=== PATIENT | male | born 1975 | race Hispanic/Latino ===

== ENCOUNTER 2020-06-23 08:02 | Emergency (ER) | payer SELFPAY ==
--- OUTSIDE RECORDS SUMMARY | 2020-06-23 08:04 | XMS REPORT | Continuity of Care Document ---
:1975 Author Organization [facility] t Address [address] [place] [address] Care Team Providers Name Role Phone Amos SALINAS Attending Clinician Problems This patient has no known problems. Allergies, Adverse Reactions, Alerts This patient has no known allergies or adverse reactions. Medications This patient has no known medications. Procedures This patient has no known procedures. Encounters Start End Encounter Admission Attending Care Care Encounter Source Date/Time Date/Time Type Type Clinicians Facility Department ID 2020-05-06 2020-05-06 Chivo Trinidad [facility] [id number] 10:47:00 11:58:00 Serenity Boyd [id number] [place] [id number] [place] [id number] Results This patient has no known results.
--- OUTSIDE RECORDS SUMMARY | 2020-06-23 08:04 | XMS REPORT | Summary of Care ---
:1975 Author Organization [facility] - Health Address [address] [place] [id number] Care Team Providers Name Role Phone Pcp, Patient Does Not Have A Primary Care Provider +[id number] 0-0000 Reason for Visit Reason Comments Abscess Auth/Cert Status Reason Specialty Diagnoses / Referred By Referred To Procedures Contact Contact Emergency Medicine [facility] ergency Dept [address] [place] [address] Fax: Encounter Details Date Type Department Care Team Description 05/06/2020 Emergency ADC-Emergency Serenity Trinidad , RITA Cellulitis and abscess of left leg (Prim caitlin Dx); Department [address] [place] [address] Tinea pedis of left foot [address] [place] [place] [address] [address] [place] [address] Allergies No Known Allergiesdocumented as of this encounter (statuses as of 05/06/2020) Medications Medication Sig Dispensed Refills Start Date End Date Status CITALOPRAM 40 MG ORAL 1 Tab Oral DAILY 30 0 09/07/2007 Active TAB QUETIAPINE 200 MG 1 Tab Oral QHS 0 0 09/07/2007 Active ORAL TAB sulfamethoxazole-trim Take 1 tablet by 14 tablet 0 05/06/2020 05/13/2020 Active ethoprim 800-160 mg mouth 2 (two) per times daily for 7 tabletIndications: days. Cellulitis and abscess of left leg, Tinea pedis of left foot acetaminophen-codeine Take 1 tablet by 12 tablet 0 05/06/2020 05/13/2020 Active 300-30 mg mouth every 6 tabletIndications: (six) hours as acute pain needed for Pain (scale 7-10) for up to 7 days. 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 documented as of this encounter Last Filed Vital Signs Vital Sign Reading Time Taken Comments Blood Pressure 116/73 05/06/2020 10:48 AM CDT Pulse 83 05/06/2020 10:48 AM CDT Temperature 36.8 C (98.3 F) 05/06/2020 10:48 AM CDT Respiratory Rate 18 05/06/2020 10:48 AM CDT Oxygen Saturation 100% 05/06/2020 10:48 AM CDT Inhaled Oxygen Concentration - - Weight 84.4 kg (186 lb) 05/06/2020 10:48 AM CDT Height 175.3 cm (5' 9") 05/06/2020 10:48 AM CDT Body Mass Index 27.47 05/06/2020 10:48 AM CDT documented in this encounter Discharge Instructions Serenity Pérez FNP - 05/06/2020Please return to the ER if you have any increased redness, drainage, or swelling after taking antibiotics for two days, any fever, chills, nausea or vomiting, or any other symptom you feel is abnormal.Please follow up with your PCP for wound recheck. Take all antibiotics as prescribed. Thank you. Purchase over the counter foot fungus medication for toes on left foot as use as directed. AttachmentsThe following attachments cannot be sent through Care Everywhere. Abscess, Antibiotic Treatment Only (Syrian)Cellulitis, Discharge Instructions for (Syrian)Athlete's Foot (Syrian)documented in this encounter ED Notes Derek Muir RN - 05/06/2020 10:48 AM CDTC/O left lower leg abscess and foot fungus x 1 week. States "It just keeps getting worse". documented in this encounter Miscellaneous Notes ED Nurse Note - Archana Romero RN - 05/06/2020 11:31 AM CDTPatient discharged home with instructions given. Patient left ER vitally stable and ambulatory in steady gait. No valuables left in ED. documented in this encounter Plan of Treatment Health Maintenance Due Date Last Done Comments Depression Screening 1985 DTaP,Tdap,and Td Vaccines (1 - 1992 Tdap) INFLUENZA VACCINE (#1) 2020 04/12/2007 Colorectal Cancer Screening 2023 PNEUMOCOCCAL 0-64 YEARS COMBINED Aged Out No longer eligible based on SERIES patient's age to complete this topic documented as of this encounter Results Not on filedocumented in this encounter Visit Diagnoses Diagnosis Cellulitis and abscess of left leg - Ramila jayson Tinea pedis of left foot Dermatophytosis of foot documented in this encounter Administered Medications Medication Order MAR Action Action Date Dose Rate Site ibuprofen (IBU) tablet 800 mg Given 05/06/2020 11:23 AM CDT 800 mg 800 mg, Oral, ONCE, 1 dose, 05/06/20 at 1215, CHELSIE sulfamethoxazole-trimethoprim (BACTRIM DS) Given 05/06 11:22 AM CDT 1 tablet 800-160 mg per tablet 1 tablet 1 tablet, Oral, ONCE NOW, 1 dose, 05/06/20 at 1215, CHELSIE, Reason for Anti-Infective: Documented Infection, Documented Infection Site: Skin / Soft Tissue, Duration of Therapy: 7 days documented in this encounter
--- NOTE | 2020-06-23 08:22 | EDPHYS ---
Physician Documentation [facility] Name: Luis Llanos Age: 45 yrs Sex: Male : 1975 Arrival Date: 06/23/2020 Time: 08:04 Bed 15 Private MD: ED Physician Pernell Carver HPI: 06/23 08:16 This 45 yrs old Male presents to ER via Unassigned with complaints of Boil. jefe 08:16 The patient presents with an abscess of the left leg, The patient presents with jefe cellulitis of the left leg, the patient presents with a swollen area of the medial aspect of left thigh. Description: The affected area is moderate sized, localized, draining, erythematous, hot. Onset: The symptoms/episode began/occurred 3 day(s) ago. Possible cause(s): unknown. Associated signs and symptoms: The patient has no apparent associated signs or symptoms. Modifying factors: the symptoms are alleviated by remaining still. Severity of symptoms: At their worst the symptoms were mild, moderate, in the emergency department the symptoms are unchanged. The patient has not experienced similar symptoms in the past. Historical: - Allergies: 08:23 No Known Allergies; jl7 - Home Meds: 08:23 None [Active]; jl7 - PMHx: 08:23 None; jl7 - PSHx: 08:23 None; jl7 - Immunization history:: Adult Immunizations not up to date. - Social history:: Smoking status: Patient reports the use of cigarette tobacco products, 3 cigarettes/day . - Family history:: not pertinent. ROS: 08:16 Constitutional: Negative for fever, chills, and weight loss, Eyes: Negative for injury, jefe pain, redness, and discharge, ENT: Negative for injury, pain, and discharge, Neck: Negative for injury, pain, and swelling, Cardiovascular: Negative for chest pain, palpitations, and edema, Respiratory: Negative for shortness of breath, cough, wheezing, and pleuritic chest pain, Abdomen/GI: Negative for abdominal pain, nausea, vomiting, diarrhea, and constipation, Back: Negative for injury and pain, : Negative for injury, bleeding, discharge, and swelling, Neuro: Negative for headache, weakness, numbness, tingling, and seizure, Psych: Negative for depression, anxiety, suicide ideation, homicidal ideation, and hallucinations, Allergy/Immunology: Negative for hives, rash, and allergies, Endocrine: Negative for neck swelling, polydipsia, polyuria, polyphagia, and marked weight changes, Hematologic/Lymphatic: Negative for swollen nodes, abnormal bleeding, and unusual bruising. 08:16 MS/extremity: Positive for pain, swelling, tenderness, of the medial aspect of left thigh. Exam: 08:16 Constitutional: This is a well developed, well nourished patient who is awake, alert, jefe and in no acute distress. Head/Face: Normocephalic, atraumatic. Eyes: Pupils equal round and reactive to light, extra-ocular motions intact. Lids and lashes normal. Conjunctiva and sclera are non-icteric and not injected. Cornea within normal limits. Periorbital areas with no swelling, redness, or edema. ENT: Nares patent. No nasal discharge, no septal abnormalities noted. Tympanic membranes are normal and external auditory canals are clear. Oropharynx with no redness, swelling, or masses, exudates, or evidence of obstruction, uvula midline. Mucous membranes moist. Neck: Trachea midline, no thyromegaly or masses palpated, and no cervical lymphadenopathy. Supple, full range of motion without nuchal rigidity, or vertebral point tenderness. No Meningismus. Chest/axilla: Normal chest wall appearance and motion. Nontender with no deformity. No lesions are appreciated. Cardiovascular: Regular rate and rhythm with a normal S1 and S2. No gallops, murmurs, or rubs. Normal PMI, no JVD. No pulse deficits. Respiratory: Lungs have equal breath sounds bilaterally, clear to auscultation and percussion. No rales, rhonchi or wheezes noted. No increased work of breathing, no retractions or nasal flaring. Abdomen/GI: Soft, non-tender, with normal bowel sounds. No distension or tympany. No guarding or rebound. No evidence of tenderness throughout. Back: No spinal tenderness. No costovertebral tenderness. Full range of motion. Male : Normal genitalia with no discharge or lesions. Neuro: Awake and alert, GCS 15, oriented to person, place, time, and situation. Cranial nerves II-XII grossly intact. Motor strength 5/5 in all extremities. Sensory grossly intact. Cerebellar exam normal. Normal gait. Psych: Awake, alert, with orientation to person, place and time. Behavior, mood, and affect are within normal limits. 08:16 Skin: abscess, that is moderate sized, approximately 3 cm(s), with drainage, with fluctuance, with induration, with surrounding cellulitis, cellulitis, that is mild, induration, that is moderate is noted. Vital Signs: 08:10 BP 174 / 96; Pulse 80; Resp 17; Temp 97.9; Pulse Ox 100% ; Weight 84.37 kg; Height 5 7 ft. 8 in. (172.72 cm); Pain 10/10; 08:26 BP 146 / 95; Pulse 76; Resp 17; Pulse Ox 100% ; jl7 08:10 Body Mass Index 28.28 (84.37 kg, 172.72 cm) 7 Procedures: 08:16 I \T\ D: Incision and drainage was performed for an abscess of the left Prepped with [facility] Betadine, Anesthetized with 10 ml's 1% Lidocaine w/ Epi. Incised with #11 blade. Drained moderate amount Packed with iodoform gauze, Dressing: non-Adherent dressing. MDM: 08:10 Patient medically screened. [facility] 08:16 Differential diagnosis: abscess, cellulitis. Data reviewed: vital signs, nurses notes. [facility] Data interpreted: surveillance monitor: rate is 76 beats/min, rhythm is regular. Counseling: I had a detailed discussion with the patient and/or guardian regarding: the historical points, exam findings, and any diagnostic results supporting the discharge/admit diagnosis, lab results. 06/23 08:15 Order name: Wound Culture [facility] 06/23 08:29 Order name: Glucose, Ancillary Testing EDFL 06/23 08:16 Order name: Gloves, Sterile; Complete Time: 08:22 [facility] 06/23 08:16 Order name: Setup Suture Tray; Complete Time: 08:22 [facility] 06/23 08:22 Order name: Blood Glucose Level; Complete Time: 08:25 [facility] Administered Medications: 08:20 Drug: Doxycycline 200 mg Route: PO; [facility] 09:05 Follow up: Response: No adverse reaction [facility] 08:20 Drug: Bactrim (160 mg-800 mg (DS) 1 tablet Route: PO; 09:05 Follow up: Response: No adverse reaction [facility] 08:48 Drug: Lidocaine-Epinephrine -1%: (1:100,000) 10 ml Volume: 20 ml; Route: Infiltration; jl7 09:05 Follow up: Response: No adverse reaction jl7 Disposition: 06/23/20 08:21 Discharged to Home. Impression: Cutaneous abscess of limb, unspecified - left medial thigh. - Condition is Stable. - Discharge Instructions: Skin Abscess, Incision and Drainage, Skin Abscess, [id number], Incision and Drainage, Care After. - Prescriptions for Ibuprofen 600 mg Oral Tablet - take 1 tablet by ORAL route every 6 hours As needed take with food; 20 tablet. Doxycycline Hyclate 100 mg Oral Tablet - take 1 tablet by ORAL route every 12 hours; 20 tablet. Bactrim DS 800- 160 mg Oral Tablet - take 1 tablet by ORAL route every 12 hours for 10 days; 20 tablet. - Medication Reconciliation Form, Thank You Letter, Antibiotic Education, Prescription Opioid Use, Work release form form. - Follow up: Private Physician; When: 2 - 3 days; Reason: Recheck today's complaints, Re-evaluation by your physician. - Problem is new. - Symptoms have improved. Signatures: Dispatcher [employer] EDFL Pernell Carver MD MD cha Leal, Jahala RN RN jl7 Corrections: (The following items were deleted from the chart) 09:07 08:21 06/23/2020 08:21 Discharged to Home. Impression: Cutaneous abscess of limb, jl7 unspecified - left medial thigh. Condition is Stable. Forms are Medication Reconciliation Form, Thank You Letter, Antibiotic Education, Prescription Opioid Use. Follow up: Private Physician; When: 2 - 3 days; Reason: Recheck today's complaints, Re-evaluation by your physician. Problem is new. Symptoms have improved. jefe
[2020-06-23] MEDS ORDERED: LIDOCAINE 1% W/EPI 1:100,000 MDV 50 ML VIAL ONE (08:30)
[2020-06-23] MEDS ORDERED: DOXYCYCLINE 100 MG CAP PO ONE (08:33)
[2020-06-23] MEDS ORDERED: SMZ./TMP. 800/160 MG TABLET ONE (08:33)
--- NOTE | 2020-06-23 09:08 | ER ---
Nurse's Notes [facility] Name: Luis Llanos Age: 45 yrs Sex: Male : 1975 Arrival Date: 06/23/2020 Time: 08:04 Bed 15 Private MD: Diagnosis: Cutaneous abscess of limb, unspecified-left medial thigh Presentation: 06/23 08:10 Chief complaint: Patient states: Boil on left inner thigh x 4 days. Coronavirus screen: jl7 Client denies travel out of the [place] in the last 14 days. At this time, the client does not indicate any symptoms associated with coronavirus-19. Ebola Screen: No symptoms or risks identified at this time. 08:10 Method Of Arrival: Ambulatory [facility] 08:10 Initial Sepsis Screen: Does the patient meet any 2 criteria? No. Patient's initial jl7 sepsis screen is negative. Does the patient have a suspected source of infection? No. Patient's initial sepsis screen is negative. Risk Assessment: Do you want to hurt yourself or someone else? Patient reports no desire to harm self or others. Onset of symptoms was June 19, 2020. Care prior to arrival: None. 08:10 Acuity: ROYER 4 jl7 Triage Assessment: 08:23 General: Appears in no apparent distress. uncomfortable, Behavior is calm, cooperative, jl7 appropriate for age. Pain: Complains of pain in medial aspect of left thigh Pain currently is 10 out of 10 on a pain scale. Pain began 4 days ago. Neuro: Level of Consciousness is awake, alert, obeys commands, Oriented to person, place, time, situation. Cardiovascular: Patient's skin is warm and dry. Respiratory: Airway is patent Respiratory effort is even, unlabored, Respiratory pattern is regular, symmetrical. GI: No signs and/or symptoms were reported involving the gastrointestinal system. : No signs and/or symptoms were reported regarding the genitourinary system. Derm: Skin is pink, warm \T\ dry. Abscess located on medial aspect of left thigh is quarter sized, is red, is raised. Historical: - Allergies: 08:23 No Known Allergies; jl7 - Home Meds: 08:23 None [Active]; jl7 - PMHx: 08:23 None; jl7 - PSHx: 08:23 None; jl7 - Immunization history:: Adult Immunizations not up to date. - Social history:: Smoking status: Patient reports the use of cigarette tobacco products, 3 cigarettes/day . - Family history:: not pertinent. Screenin:26 Abuse screen: Denies threats or abuse. Denies injuries from another. Nutritional jl7 screening: No deficits noted. Tuberculosis screening: No symptoms or risk factors identified. Fall Risk None identified. Assessment: 08:26 General: See triage assessment. jl7 08:40 Reassessment: Awaiting ERD to shantanu abscess. Will discharge pt once procedure is done. jl7 Vital Signs: 08:10 BP 174 / 96; Pulse 80; Resp 17; Temp 97.9; Pulse Ox 100% ; Weight 84.37 kg; Height 5 jl7 ft. 8 in. (172.72 cm); Pain 10/10; 08:26 BP 146 / 95; Pulse 76; Resp 17; Pulse Ox 100% ; jl7 08:10 Body Mass Index 28.28 (84.37 kg, 172.72 cm) jl7 ED Course: 08:04 Patient arrived in ED. ag5 08:05 Pernell Carver MD is Attending Physician. jefe 08:10 Amada Zurita RN is Primary Nurse. jl7 08:23 Triage completed. jl7 08:23 Arm band placed on right wrist. jl7 08:26 Patient has correct armband on for positive identification. Placed in gown. Bed in low jl7 position. Call light in reach. Side rails up X 1. Pulse ox on. NIBP on. 08:50 Assist provider with I \T\ D: of an abscess on left medial aspect of left thigh Set up jl7 I\T\D tray. Performed by Pernell Carver MD Culture sent to lab. Wound packed. iodoform gauze, Dressing with 4X4s, tape Patient tolerated well. 09:07 Patient did not have IV access during this emergency room visit. jl7 Administered Medications: 08:20 Drug: Doxycycline 200 mg Route: PO; jl7 09:05 Follow up: Response: No adverse reaction jl7 08:20 Drug: Bactrim (160 mg-800 mg (DS) 1 tablet Route: PO; jl7 09:05 Follow up: Response: No adverse reaction jl7 08:48 Drug: Lidocaine-Epinephrine -1%: (1:100,000) 10 ml Volume: 20 ml; Route: Infiltration; jl7 09:05 Follow up: Response: No adverse reaction 7 Outcome: 08:21 Discharge ordered by . jefe : Discharged to home ambulatory. 09: Condition: stable 09:07 Discharge instructions given to patient, family, Instructed on discharge instructions, follow up and referral plans. medication usage, Demonstrated understanding of instructions, follow-up care, medications, Prescriptions given X 3. 09:07 Patient left the ED. jl Signatures: Pernell Carver MD MD cha Leal, Jahala, RN RN jl7 Valentino Mcnally ag5
[2020-06-27 14:02] VITALS: BP 174/96; TEMP 97.9; O2SAT 100
== END 2020-06-23 09:07 | disposition home or self-care (01) ==
LOC: ER 08:02
PROC: 0H9JXZZ Drainage of Left Upper Leg Skin, External Approach (ICD-10-PCS; principal; 2020-06-23)
DX: L02.416 Cutaneous abscess of left lower limb (principal); F17.210 Nicotine dependence, cigarettes, uncomplicated
CPT/HCPCS: 82947; 87070; 87077; 87186; 87205; 99284

== ENCOUNTER 2021-01-12 14:17 | Emergency (ER) | payer SELFPAY ==
--- NOTE | 2021-01-12 15:40 | EDPHYS ---
Physician Documentation [facility] Name: Luis Llanos Age: 45 yrs Sex: Male : 1975 Arrival Date: 01/12/2021 Time: 14:20 Bed Hall20 Private MD: ED Physician Ervin Buckley HPI: 01/12 15:38 This 45 yrs old Male presents to ER via Ambulatory with complaints of Leg pm1 Swelling. 15:38 the patient presents with a swollen area of the lateral aspect of right calf. pm1 Description: swollen. Onset: The symptoms/episode began/occurred 2 day(s) ago. Possible cause(s): spider bite. 15:38 Associated signs and symptoms: Pertinent negatives: discharge, drainage, fever. pm1 Modifying factors: the symptoms are alleviated by nothing, the symptoms are aggravated by touching. Severity of symptoms: in the emergency department the symptoms are actually worse. The patient has experienced a previous episode, approximately 1 years ago. The patient has not recently seen a physician. Historical: - Allergies: 15:27 No Known Allergies; kg - PMHx: 15:27 boil; kg - PSHx: 15:27 None; kg - Immunization history:: Adult Immunizations up to date, Client reports having NOT received the Covid vaccine. Last tetanus immunization: < 5 years ago. - Social history:: Smoking status: Patient reports the use of cigarette tobacco products, smokes one-half pack cigarettes per day, Patient uses alcohol, weekly. ROS: 15:38 Constitutional: Negative for fever, chills, and weight loss, Cardiovascular: Negative pm1 for chest pain, palpitations, and edema, Respiratory: Negative for shortness of breath, cough, wheezing, and pleuritic chest pain, MS/Extremity: Negative for injury and deformity. 15:38 Skin: Positive for swelling, of the lateral aspect of right calf. 15:38 All other systems are negative. Exam: 15:38 Constitutional: This is a well developed, well nourished patient who is awake, alert, pm1 and in no acute distress. Head/Face: Normocephalic, atraumatic. 15:38 Eyes: Exam is negative for acute changes, Conjunctiva: normal, no injection, Sclera: no acute changes, icterus, is not appreciated. 15:38 ENT: Mouth: no acute changes, Lips: normal, Oral mucosa: normal, pink and intact, moist. 15:38 Cardiovascular: Exam negative for acute changes, Rate: normal, Rhythm: regular, Pulses: no pulse deficits are appreciated. 15:38 Respiratory: Exam negative for acute changes, respiratory distress, shortness of breath. 15:38 Skin: Appearance: normal except for affected area, abscess, not appreciated, cellulitis, that is mild, on the lateral aspect of right calf. 15:38 Neuro: Orientation: is normal, Mentation: is normal, Motor: is normal, moves all fours. Vital Signs: 15:25 BP 140 / 88; Pulse 96; Resp 20; Temp 98.8(O); Pulse Ox 99% on R/A; Weight 85.09 kg (M); kg Height 5 ft. 8 in. (172.72 cm) (R); Pain 7/10; 15:25 Body Mass Index 28.52 (85.09 kg, 172.72 cm) kg MDM: 15:38 Data reviewed: vital signs. Data interpreted: Pulse oximetry: on room air is 99 %. pm1 Interpretation: normal. Counseling: I had a detailed discussion with the patient and/or guardian regarding: the historical points, exam findings, and any diagnostic results supporting the discharge/admit diagnosis, the need for outpatient follow up, a family practitioner, to return to the emergency department if symptoms worsen or persist or if there are any questions or concerns that arise at home. 15:39 Patient medically screened. pm1 Administered Medications: 15:45 Drug: Tetanus-Diphtheria Toxoid Adult 0.5 ml {Dope Maintenance Worker: [employer]. Exp: sv 09/14/2022. Lot #: [id number]. } Route: IM; Site: right deltoid; 15:50 Follow up: Response: No adverse reaction sv Disposition Summary: 01/12/21 15:39 Discharge Ordered Location: Home pm1 Problem: new pm1 Symptoms: have improved pm1 Condition: Stable pm1 Diagnosis - Cellulitis of right lower limb pm1 Followup: pm1 - With: Emergency Department - When: As needed - Reason: Worsening of condition Followup: pm1 - With: Private Physician - When: 2 - 3 days - Reason: Recheck today's complaints, Continuance of care, Re-evaluation by your physician Discharge Instructions: - Discharge Summary Sheet pm1 - Insect Bite, Adult pm1 - Cellulitis, Adult pm1 Forms: - Medication Reconciliation Form pm1 - Thank You Letter pm1 - Antibiotic Education pm1 - Prescription Opioid Use pm1 - Work release form sv Prescriptions: - Bactrim DS 800-160 mg Oral Tablet - take 1 tablet by ORAL route every 12 hours for 10 days; 20 tablet; Refills: 0, pm1 Product Selection Permitted - Cephalexin 500 mg Oral Capsule - take 1 capsule by ORAL route every 6 hours for 10 days; 40 capsule; Refills: 0, pm1 Product Selection Permitted Addendum: 01/14/2021 13:37 Co-signature as Attending Physician, Ervin Buckley MD I agree with the assessment and k dr plan of care. Signatures: Nedra Clemens, RN RN Ervin Buckley MD MD [facility] Kenton Gibbs NP CREDIT OFFICER pm1 Marylin Fields, BRANDO RN kg
--- NOTE | 2021-01-12 15:40 | ER ---
Nurse's Notes [facility] Name: Luis Llanos Age: 45 yrs Sex: Male : 1975 Arrival Date: 01/12/2021 Time: 14:20 Bed Hall20 [facility] MD: Diagnosis: Cellulitis of right lower limb Presentation: 01/12 15:25 Chief complaint: Patient states: Possible spider bite on right calf 01/10. Coronavirus kg screen: Client denies travel out of the [place] in the last 14 days. At this time, unable to obtain information related to travel outside the [place] At this time, the client does not indicate any symptoms associated with coronavirus-19. Ebola Screen: Patient negative for fever greater than or equal to 101.5 degrees Fahrenheit, and additional compatible Ebola Virus Disease symptoms Patient denies exposure to infectious person. Patient denies travel to an Ebola-affected area in the 21 days before illness onset. Initial Sepsis Screen: Does the patient meet any 2 criteria? No. Patient's initial sepsis screen is negative. Does the patient have a suspected source of infection? No. Patient's initial sepsis screen is negative. Risk Assessment: Do you want to hurt yourself or someone else? Patient reports no desire to harm self or others. Onset of symptoms was January 10, 2021. 15:25 Method Of Arrival: Ambulatory kg 15:25 Acuity: ROYER 4 kg Triage Assessment: 15:27 General: Appears in no apparent distress. comfortable, Behavior is calm, cooperative, kg appropriate for age, quiet. Pain: Complains of pain in lateral aspect of right knee, lateral aspect of right calf, posterior aspect of right knee, right calf, medial aspect of right knee, medial aspect of right calf, right knee and right gomez Pain currently is 7 out of 10 on a pain scale. at worst was 9 out of 10 on a pain scale. level that patient reports is acceptable is 3 out of 10 on a pain scale. Quality of pain is described as burning, aching, sharp, Pain began 2-3 days ago. Historical: - Allergies: 15:27 No Known Allergies; kg - PMHx: 15:27 boil; kg - PSHx: 15:27 None; kg - Immunization history:: Adult Immunizations up to date, Client reports having NOT received the Covid vaccine. Last tetanus immunization: < 5 years ago. - Social history:: Smoking status: Patient reports the use of cigarette tobacco products, smokes one-half pack cigarettes per day, Patient uses alcohol, weekly. Screenin:29 Abuse screen: Denies threats or abuse. Denies injuries from another. Nutritional kg screening: No deficits noted. Tuberculosis screening: No symptoms or risk factors identified. Fall Risk None identified. No fall in past 12 months (0 pts). No secondary diagnosis (0 pts). No IV (0 pts). Ambulatory Aid- None/Bed Rest/Nurse Assist (0 pts). Gait- Normal/Bed Rest/Wheelchair (0 pts) Mental Status- Oriented to own ability (0 pts). Total Valle Fall Scale indicates No Risk (0-24 pts). Assessment: 15:31 General: Appears in no apparent distress. Behavior is calm, cooperative, appropriate kg for age, quiet. Pain: Complains of pain in lateral aspect of right knee, lateral aspect of right calf, posterior aspect of right knee, right calf, medial aspect of right knee, medial aspect of right calf, right knee and right gomez. Neuro: No deficits noted. Cardiovascular: No deficits noted. Respiratory: No deficits noted. GI: No deficits noted. : No deficits noted. EENT: No deficits noted. Derm: Abscess located on lateral aspect of right calf Reports pain that is 7 out of 10 on a pain scale. Injury Description: Bite sustained to lateral aspect of right calf caused by an unknown animal, is from insect was sustained 01/10. Vital Signs: 15:25 BP 140 / 88; Pulse 96; Resp 20; Temp 98.8(O); Pulse Ox 99% on R/A; Weight 85.09 kg (M); kg Height 5 ft. 8 in. (172.72 cm) (R); Pain 7/10; 15:25 Body Mass Index 28.52 (85.09 kg, 172.72 cm) kg ED Course: 14:20 Patient arrived in ED. mr 15:27 Triage completed. kg 15:29 Arm band placed on right wrist. kg 15:29 Patient has correct armband on for positive identification. kg 15:30 Kenton Gibbs NP is PHCP. pm1 15:30 Ervin Buckley MD is Attending Physician. pm1 15:31 Donnie, Marylin, RN is Primary Nurse. kg 15:32 No provider procedures requiring assistance completed. Patient did not have IV access kg during this emergency room visit. 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 Exp: sv 09/14/2022. Lot #: [id number]. } Route: IM; Site: right deltoid; 15:50 Follow up: Response: No adverse reaction sv Outcome: 15:39 Discharge ordered by MD. pm1 15:50 Discharged to home ambulatory. sv 15:50 Condition: stable 15:50 Discharge instructions given to patient, Instructed on discharge instructions, follow up and referral plans. medication usage, Demonstrated understanding of instructions, follow-up care, medications, Prescriptions given X 2. 15:50 Patient left the ED. sv Signatures: Nedra Clemens, RN RN Nadeen Newman mr GibbsKenton, PALLETIZER PALLETIZER pm1 Marylin Fields, RN RN kg
[2021-01-12 15:58] VITALS: BP 140/88; TEMP 98.8; O2SAT 99
--- OUTSIDE RECORDS SUMMARY | 2021-01-12 15:59 | XMS REPORT | Continuity of Care Document ---
:1975 Author Organization [facility] t Address [address] [place] [address] Care Team Providers Name Role Phone Serenity Ocampo Attending Clinician Problems This patient has no known problems. Allergies, Adverse Reactions, Alerts This patient has no known allergies or adverse reactions. Medications This patient has no known medications. Procedures This patient has no known procedures. Encounters Start End Encounter Admission Attending Care Care Encounter Source Date/Time Date/Time Type Type Clinicians Facility Department ID 2020-05-06 2020-05-06 Emergency KARO Trinidad [id number] 10:47:00 11:58:00 Serenity Boyd [id number] [place] [id number] [place] [id number] Results This patient has no known results.
[2021-01-12] MEDS ORDERED: TETANUS & DIPHTHERIA TOX,ADULT 0.5 ML VIAL ONE (16:04)
== END 2021-01-12 15:50 | disposition home or self-care (01) ==
LOC: ER 14:17
DX: L03.115 Cellulitis of right lower limb (principal); F17.210 Nicotine dependence, cigarettes, uncomplicated
CPT/HCPCS: 90471; 90714; 99283

== ENCOUNTER 2022-05-26 08:24 | Emergency (ER) | payer SELFPAY ==
--- OUTSIDE RECORDS SUMMARY | 2022-05-26 08:28 | XMS REPORT | Continuity of Care Document ---
:1975 Author Organization [facility] t Address [address] [place] [address] Care Team Providers Name Role Phone PCP, PATIENT DOES NOT HAVE A Primary Care Physician UnavailJONES Duval Attending Clinician Unavailable Jones Cortes MD Attending Clinician Faye Roblero Attending Clinician FAYE DAWSON Attending Clinician Unavailable Serenity Ocampo Attending Clinician JONES CORTES Admitting Clinician Unavailable Payers Payer Name Policy Type Policy Number Effective Date Expiration Date Jennifer PHEPLS II [id number] 2015 00:00:00 Problems Condition Condition Condition Status Onset Resolution Last Treating Co mments Source Name Details Category Date Date Treatment Clinician Date 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 Allergies, Adverse Reactions, Alerts Allergy Allergy Status Severity Reaction(s) Onset Inactive Treating Comm ents Source Name Type Date Date Clinician NO KNOWN Drug Active Univers ALLERGIE Class ity of S [facility] Social History Social Habit Start Date Stop Date Quantity Comments Source Exposure to 2022-03-16 2022-03-26 Unable to assess Univers ity of SARS-CoV-2 00:00:00 14:29:00 [facility] (event) Branch Sex Assigned At [birth year] Universit y of 00:00:00 00:00:00 [facility] Smoking Status Start Date Stop Date Source Tobacco smoking consumption [facility] unknown Branch Medications Ordered Filled Start Stop Current Ordering Indication Dosage Frequency Signature Comments Components Source Medication Medication Date Date Medication? Clinician (SIG) Name Name cyclobenzap Yes [id number] 5mg Take 1 Univers rine 5 mg 9-14 tablet by ity o f tablet 00:00: mouth in [place] 00 the Medical morning Branch and 1 tablet at noon and 1 tablet in the evening. erythromyci 2021- No .5[in_u 0.5 Inch, Univers n 10-02 s] Left Eye, ity of (ILOTYCIN) 01:30: 00:32 ONCE, 1 [place] as 5 mg/gram 00 :00 dose, On Medica l (0.5 %) [facility] Branch ophthalmic 10/01/21 at ointment 2030, CHELSIE 0.5 Inch erythromyci 2021- No [id number] .5[in_u Place 0.5 Univers n 5 mg/gram 10-01 826993 s] Inches in ity of (0.5 %) 00:00: 04:59 left eye 2 [place] as ophthalmic 00 :00 (two) Medical ointment times Branch daily for 7 days. Continue until you follow up with eye doctor. CITALOPRAM Yes 1 Tab Oral U nivers 40 MG ORAL 2-26 DAILY ity of TAB 00:00: [address] QUETIAPINE Yes 1 Tab Oral U nivers 200 MG ORAL 2-26 QHS ity of TAB 00:00: [address] CITALOPRAM Yes 1 Tab Oral U nivers 40 MG ORAL 2-26 DAILY ity of TAB 00:00: [address] QUETIAPINE Yes 1 Tab Oral U nivers 200 MG ORAL 2-26 QHS ity of TAB 00:00: [address] Immunizations Ordered Filled Immunization Date Status Comments Sour e Immunization Name Name Influenza Virus 2007-04-12 Completed Universit y of Vaccine 00:00:00 [facility] Influenza Virus 2007-04-12 Completed Universit y of Vaccine 00:00:00 [facility] Vital Signs Vital Name Observation Time Observation Value Comments Source Systolic blood 2022-03-26 19:30:19 130 mm[Hg] Univer sity of pressure [place] [facility] Diastolic blood 2022-03-26 19:30:19 78 mm[Hg] Unive rsity of pressure [place] [facility] Heart rate 2022-03-26 19:30:19 70 /min Universi ty [facility] [place] [facility] Body temperature 2022-03-26 19:30:19 36.78 Lala Univ ersity of [place] [facility] Respiratory rate 2022-03-26 19:30:19 16 /min Univ ersity of [place] [facility] Body height 2022-03-26 16:46:00 172.7 cm [facility]i ty [facility] [place] [facility] Body weight 2022-03-26 16:46:00 84.369 kg [facility] [place] [facility] BMI 2022-03-26 16:46:00 28.28 kg/m2 [facility] ty [facility] [place] [facility] Oxygen saturation in 2022-03-26 16:46:00 97 /min University of Arterial blood by [place] unrival dayna Pulse oximetry Branch Systolic blood 2021-10-01 23:35:00 134 mm[Hg] Univer sity of pressure [place] [facility] Diastolic blood 2021-10-01 23:35:00 81 mm[Hg] Unive rsity of pressure [place] [facility] Heart rate 2021-10-01 23:35:00 79 /min [facility]i ty [facility] [place] [facility] Body temperature 2021-10-01 23:35:00 37.28 Lala Univ ers[facility] [place] [facility] Respiratory rate 2021-10-01 23:35:00 18 /min Univ ers[facility] [place] [facility] Body height 2021-10-01 23:35:00 157.5 cm [facility] [place] [facility] Body weight 2021-10-01 23:35:00 88.451 kg [facility] [place] [facility] BMI 2021-10-01 23:35:00 35.67 kg/m2 [facility] [place] [facility] Oxygen saturation in 2021-10-01 23:35:00 98 /min University of Arterial blood by [employer] dayna Pulse oximetry Branch Procedures Procedure Date / Time Performed Performing Clinician Ke e XR SHOULDER 2+ VW 2022-03-26 18:01:34 Jones Cortes [facility] Medical Branch CONSENT/REFUSAL FOR 2022-03-26 16:34:58 Doctor Unassigned, No [facility] [place] DIAGNOSIS AND Name Medical Branch TREATMENT ASSIGNMENT OF BENEFITS 2021-10-01 23:49:23 Doctor Unassigned, No [facility] Name Medical Branch NOTICE OF PRIVACY 2021-10-01 23:28:40 [facility], [facility] CONSENT/REFUSAL FOR 2021-10-01 23:28:11 Doctor Unassigned, No Un iversity of [place] DIAGNOSIS AND Name Medical Branch TREATMENT Encounters Start End Encounter Admission Attending Care Care Encounter Source Date/Time Date/Time Type Type Clinicians Facility Department ID 2022-03-26 2022-03-26 [facility] [id number] Univers 12:00:00 14:33:00 JONES mayes [facility] 2022-03-26 2022-03-26 [facility] [id number] Univers 12:00:00 14:33:00 Jones BOYD [id number] i ty of [place] [id number] [facility] [id number] [address] 2021-10-01 2021-10-01 [facility] [id number] Univers 18:38:00 19:44:00 Faye BOYD [id number] i ty of [place] [id number] [facility] [id number] [address] 2021-10-01 2021-10-01 Emergency [facility] ERT [id number] Univers 18:38:00 19:44:00 FAYE [facility] 2020-05-06 2020-05-06 [facility] [id number] 10:47:00 11:58:00 Serenity Boyd [id number] [place] [id number] [place] [id number] [facility] 2020-05-06 2020-05-06 Emergency [facility] ERT [id number] Univers 10:43:00 10:43:00 [facility] Results This patient has no known results.
[2022-05-26 10:26] LABS: Absolute Lymphocytes (CBC) 2.5 K/uL (0.7-4.9); Hematocrit 44.7 % (39.6-49.0); Lymphocytes % 33.8 % (15.3-44.8); MCV 89.6 fL (80-100); MPV 9.1 fL (7.6-11.3); RBC Red Blood Cell Count 4.99 M/uL (4.33-5.43)
[2022-05-26 10:29] LABS: Protime INR 0.98
[2022-05-26 10:38] LABS: Potassium 3.5 mmol/L (3.5-5.1); Troponin High Sensitivity 5.3 pg/mL (<58.9)
--- NOTE | 2022-05-26 10:46 | RAD REPORT ---
EXAM DESCRIPTION: CT - Head C Spine Cap Anne-Marie Morrison - 05/26/2022 10:24 am CLINICAL HISTORY: Head and neck injury with chest and abdominal pain status post fall. Head and neck pain . TECHNIQUE: Computed axial tomography of the head and cervical spine was obtained Computed axial tomography of the chest, abdomen and pelvis was obtained. 100 cc Isovue-300 was given intravenously coronal and sagittal reconstruction was performed. All CT scans are performed using dose optimization technique as appropriate and may include automated exposure control or mA/KV adjustment according to patient size. COMPARISON: CT abdomen 2017 FINDINGS: An intracranial bleed is not seen. The ventricles are normal in caliber. An extra-axial fl uid collection is not noted. Fluid within the sinuses is not seen A cervical fracture is not seen. No dislocation is seen. A mediastinal hematoma is not noted. A pleural effusion is not present. A lung contusion is not seen. Nondisplaced fracture of the left posterior tenth rib. No pneumothorax The liver, spleen, pancreas, adrenals, kidneys and bladder do not demonstrate an acute traumatic inju ry Mild fatty liver. Small left inguinal hernia IMPRESSION: No acute intracranial abnormality is seen A cervical fracture is not visualized. If the patient continues have symptoms to suggest intracranial /spinal cord pathology then MRI would be recommended. Nondisplaced fracture left posterior tenth rib
[2022-05-26] MEDS ORDERED: FENTANYL CITR 100 MCG/2 ML ONE (11:04)
--- NOTE | 2022-05-26 11:08 | RAD REPORT ---
EXAM DESCRIPTION: CT - Facial Bones W/ Mpr - 05/26/2022 10:24 am CLINICAL HISTORY: Facial injury status post fall COMPARISON: None TECHNIQUE: Computed axial tomography of the face was obtained. Coronal and sagittal reconstruction w as performed. All CT scans are performed using dose optimization technique as appropriate and may include automated exposure control or mA/KV adjustment according to patient size. FINDINGS: Comminuted mildly to moderately displaced fracture right zygomatic arch Mildly displaced fracture right zygomaticosphenoid suture Mildly displaced fractures posterior and lateral lane of right maxillary sinus. Mildly displaced fracture right zygomaticomaxillary suture/lateral right orbital floor Blood right maxillary sinus Right globe is intact. No TMJ dislocation IMPRESSION: Right facial fractures
--- NOTE | 2022-05-26 11:31 | RAD REPORT ---
EXAM DESCRIPTION: Abi Single View05/26/2022 9:14 am CLINICAL HISTORY: Chest pain COMPARISON: none FINDINGS: Nondisplaced fracture lower posterior left ribs. No pneumothorax. Lungs appear clear. Heart is normal size
--- NOTE | 2022-05-26 11:31 | RAD REPORT ---
EXAM DESCRIPTION: RAD - Pelvis - 05/26/2022 9:14 am CLINICAL HISTORY: Pelvic pain status post injury FINDINGS: No fracture or dislocation is seen.
--- NOTE | 2022-05-26 11:57 | EDPHYS ---
Physician Documentation [facility] Name: Luis Llanos Age: 47 yrs Sex: Male : 1975 Arrival Date: 05/26/2022 Time: 08:27 Bed 11 Private MD: ED Physician Brayan Yang HPI: 05/26 08:50 This 47 yrs old Male presents to ER via Ambulatory with complaints of Flank cp Pain, Fall Injury. 08:50 The patient complains of pain in the left and right flank. cp 08:50 Onset: The symptoms/episode began/occurred this past Thursday. cp 08:50 Associated signs and symptoms: Pertinent positives: headache and facial pain, Pertinent cp negatives: diarrhea, fever, pain radiating to the lower extremities, vomiting. Patient reports injuries from fall while in metal basket being lifted by forklift approximately 6 feet off the ground while at work this past Thursday. Patiently reportedly sustained head injury with loss of consciousness for several minutes. Patient comes to ED today for evaluation. Historical: - Allergies: 10:12 No Known Allergies; ss - Home Meds: 10:12 None [Active]; ss - PMHx: 10:12 boil; ss - PSHx: 10:12 None; ss - Immunization history:: unknown. - Social history:: Smoking status: Patient denies any tobacco usage or history of. ROS: 09:00 Constitutional: Negative for body aches, chills, fever, poor PO intake. cp 09:00 Eyes: Negative for injury, pain, redness, and discharge. cp 09:00 ENT: Negative for ear pain, sore throat, difficulty swallowing, difficulty handling secretions. 09:00 Cardiovascular: Positive for chest pain. 09:00 Respiratory: Negative for cough, shortness of breath, wheezing. 09:00 Abdomen/GI: Negative for vomiting, diarrhea, constipation. 09:00 Back: Positive for flank pain, bilaterally. 09:00 MS/extremity: Negative for injury or acute deformity, decreased range of motion, paresthesias. 09:00 Neuro: Positive for loss of consciousness, Negative for altered mental status, dizziness, syncope, weakness. 09:00 All other systems are negative. Exam: 09:05 Constitutional: The patient appears in no acute distress, alert, awake, cp non-diaphoretic, non-toxic, well developed, well nourished, uncomfortable. 09:05 Head/face: Noted is ecchymosis, that is mild, of the right cheek, swelling, that is cp mild, of the right cheek, tenderness, that is moderate, of the right cheek. 09:05 Eyes: Periorbital structures: swelling, that is mild, on the right lower eyelid, Pupils: equal, round, and reactive to light and accomodation, Extraocular movements: intact throughout, Conjunctiva: normal, no exudate, no injection, Sclera: no appreciated abnormality, Lids and lashes: appear normal, bilaterally. 09:05 ENT: External ear(s): are unremarkable, Ear canal(s): are normal, clear, TM's: dullness, bilaterally, Nose: is normal, Mouth: Lips: moist, Oral mucosa: pink and intact, moist, Posterior pharynx: Airway: no evidence of obstruction, patent. 09:05 Neck: C-spine: C-collar placed in ED, ROM/movement: pain, that is mild, with any movement, nuchal rigidity, is not appreciated. 09:05 Chest/axilla: Inspection: normal, Palpation: crepitus, is not appreciated, tenderness, of the diaphragm. 09:05 Cardiovascular: Rate: normal, Rhythm: regular, Edema: is not appreciated, JVD: is not cp appreciated. 09:05 Respiratory: the patient does not display signs of respiratory distress, Respirations: cp labored breathing, is not present, shallow respirations, that is mild, Breath sounds: are clear throughout, no decreased breath sounds, no stridor, no wheezing. 09:05 Abdomen/GI: Inspection: abdomen appears normal, Bowel sounds: active, all quadrants, Palpation: soft, in all quadrants, moderate abdominal tenderness, in the anterior aspect of left lateral abdomen, posterior aspect of left lateral abdomen, anterior aspect of right lateral abdomen and posterior aspect of right lateral abdomen, rebound tenderness, is not appreciated. 09:05 Back: vertebral tenderness, is not appreciated. 09:05 Musculoskeletal/extremity: Exam is negative for decreased range of motion, deformity, injury, ROM: intact in all extremities. 09:05 Neuro: Orientation: to person, place \T\ time. Mentation: is normal, Cerebellar function: is grossly normal, Motor: moves all fours, strength is normal, Sensation: is normal. 10:50 ECG was reviewed by the Attending Physician. Vital Signs: 10:47 BP 128 / 88; Pulse 68; Resp 16; Temp 98.4(TE); Pulse Ox 98% on R/A; Weight 77.11 kg; ss Height 5 ft. 8 in. (172.72 cm); Pain 10/10; 12:53 BP 136 / 93; Pulse 62; Resp 16; Pulse Ox 99% on R/A; ss 10:47 Body Mass Index 25.85 (77.11 kg, 172.72 cm) ss Dayhoit Coma Score: 09:05 Eye Response: spontaneous(4). Verbal Response: oriented(5). Motor Response: obeys commands(6). Total: 15. MDM: 08:38 Patient medically screened. rn 11:45 Data reviewed: vital signs, nurses notes, lab test result(s), EKG, radiologic studies, cp CT scan, plain films, I have discussed the patient's presentation/case with the attending Emergency Department Physician;. 11:45 Test interpretation: by ED physician or midlevel provider: ECG. 12:45 Physician consultation: regarding regarding transfer, to [facility]. DR Glo yoo accept transfer w/o doc to doc consult. 05/26 08:44 Order name: Basic Metabolic Panel; Complete Time: 11:35 05/26 11:35 Interpretation: Reviewed. 05/26 08:44 Order name: CBC with Diff; Complete Time: 11:35 05/26 11:35 Interpretation: Reviewed. 05/26 08:44 Order name: PT-INR; Complete Time: 11:35 05/26 08:44 Order name: Troponin HS; Complete Time: 11:35 05/26 11:35 Interpretation: Reviewed. 05/26 08:44 Order name: Ptt, Activated; Complete Time: 11:35 05/26 10:44 Order name: CREATININE WHOLE BLOOD; Complete Time: 11:35 EDMS 05/26 08:44 Order name: XRAY Chest (1 view); Complete Time: 11:36 05/26 11:36 Interpretation: Report reviewed. 05/26 08:44 Order name: XRAY Pelvis; Complete Time: 11:36 05/26 11:36 Interpretation: Report reviewed. 05/26 08:44 Order name: CT Traumagram (Head C Spine CAP W Con); Complete Time: 11:35 cp 05/26 08:44 Order name: CT Facial Bones W/O Con; Complete Time: 11:35 cp 05/26 08:44 Order name: EKG; Complete Time: 08:45 cp 05/26 08:44 Order name: Cardiac monitoring; Complete Time: 10:47 cp 05/26 08:44 Order name: EKG - Nurse/Tech; Complete Time: 10:47 cp 05/26 08:44 Order name: IV Saline Lock; Complete Time: 10:47 cp 05/26 08:44 Order name: Labs collected and sent; Complete Time: 10:47 cp 05/26 08:44 Order name: O2 Per Protocol; Complete Time: 10:47 cp 05/26 08:44 Order name: O2 Sat Monitoring; Complete Time: 10:47 cp EC:50 Rate is 64 beats/min. Rhythm is regular. KS interval is normal. QRS interval is normal. cp QT interval is normal. T waves are Inverted in lead aVR. Interpreted by me. Reviewed by me. Administered Medications: 11:07 Drug: fentaNYL (PF) 25 mcg Route: IVP; Site: left antecubital; ss 12:25 Drug: fentaNYL (PF) 25 mcg Route: IVP; Site: left antecubital; ss 12:28 Drug: NS 0.9% 1000 ml Route: IV; Rate: 1000 ml; Site: left antecubital; ss 12:28 Drug: Ancef (cefazolin) 1 grams Route: IVPB; Site: left antecubital; ss 13:28 Follow up: IV Status: Completed infusion; IV Intake: 100ml ss Disposition: 16:15 Co-signature as Attending Physician, Brayan Yang MD. rn Disposition Summary: 05/26/22 11:56 Transfer Ordered Transfer Location: [facility] cp Reason: Higher level of care cp Condition: Stable cp Problem: new cp Symptoms: have improved cp Accepting Physician: DR Cody(05/26/22 14:05) iw Diagnosis - Fracture of one rib, left side cp - Zygomatic fracture, right side, initial encounter for closed fracture cp - Fracture of orbital floor, right side, initial encounter for closed fracture cp - Maxillary fracture, right side, initial encounter for closed fracture cp Forms: - Medication Reconciliation Form cp - SBAR form cp Signatures: Dispatcher [employer] Eleanor Mixon RN RN iw Brayan Yang MD MD rn Smirch, Shelby, RN RN ss Pernell Ireland PA PA cp Corrections: (The following items were deleted from the chart) 13:37 11:56 Doctor cp ss 13:40 13:37 Doctor ss ss 13:47 13:40 Doctor ss cp 14:05 13:47 DR Glo billingsley iw
--- NOTE | 2022-05-26 11:57 | ER ---
Nurse's Notes [facility] Name: Luis Llanos Age: 47 yrs Sex: Male : 1975 Arrival Date: 05/26/2022 Time: 08:27 Bed 11 Private MD: Diagnosis: Fracture of one rib, left side;Zygomatic fracture, right side, initial encounter for closed fracture;Fracture of orbital floor, right side, initial encounter for closed fracture;Maxillary fracture, right side, initial encounter for closed fracture Presentation: 05/26 08:34 Chief complaint: Patient states: pain in left ribs after falling 6 feet on Thursday. iw Coronavirus screen: At this time, the client does not indicate any symptoms associated with coronavirus-19. Ebola Screen: Patient negative for fever greater than or equal to 101.5 degrees Fahrenheit, and additional compatible Ebola Virus Disease symptoms Patient denies exposure to infectious person. Patient denies travel to an Ebola-affected area in the 21 days before illness onset. No symptoms or risks identified at this time. Onset of symptoms was May 23, 2022. 08:34 Method Of Arrival: Ambulatory 08:34 Acuity: ROYER 3 iw 10:12 Initial Sepsis Screen: Does the patient meet any 2 criteria? No. Patient's initial ss sepsis screen is negative. Does the patient have a suspected source of infection? No. Patient's initial sepsis screen is negative. Risk Assessment: Do you want to hurt yourself or someone else? Patient reports no desire to harm self or others. Historical: - Allergies: 10:12 No Known Allergies; ss - Home Meds: 10:12 None [Active]; ss - PMHx: 10:12 boil; ss - PSHx: 10:12 None; ss - Immunization history:: unknown. - Social history:: Smoking status: Patient denies any tobacco usage or history of. Screenin:47 Abuse screen: Denies threats or abuse. Denies injuries from another. Nutritional ss screening: No deficits noted. Tuberculosis screening: Never had TB. Fall Risk None identified. Assessment: 10:14 General: Appears in no apparent distress. comfortable, well groomed, well developed, ss well nourished, Behavior is calm, Denies fever, feeling ill, fatigue, chills. Pain: Complains of pain in R side of face, bilateral ribs (worse on L) Pain currently is 10 out of 10 on a pain scale. Quality of pain is described as aching, tender, Is continuous. Neuro: Level of Consciousness is awake, alert, obeys commands, Oriented to person, place, time, situation, Senior Architect are equal bilaterally Speech is normal. Cardiovascular: Capillary refill < 3 seconds is brisk in bilateral fingers. Respiratory: Airway is patent Respiratory effort is even, unlabored, Respiratory pattern is regular, symmetrical. Derm: Skin is intact, is healthy with good turgor, Skin is pink, warm \T\ dry. normal. Musculoskeletal: Range of motion: intact in all extremities, Swelling present in right cheek and right ear. 11:30 Reassessment: Patient appears in no apparent distress at this time. Patient and/or ss family updated on plan of care and expected duration. Pain level reassessed. Patient is alert, oriented x 3, equal unlabored respirations, skin warm/dry/pink. 12:37 Reassessment: Report given to BRANDO Luna at [facility]. 12:53 Reassessment: Patient appears in no apparent distress at this time. family at bedside. ss Pt reports pain has decreased to 4/10 at this time. Neuro: Lemon Agitation-Sedation Scale (RASS): 0 - Alert and Calm Level of Consciousness is awake, alert, obeys commands. GI: Patient currently denies nausea. Derm: Skin is pink, warm \T\ dry. 13:26 Reassessment: Dr. Yang and BRANDYN Reid states OK to remove C-collar at this time. Pt is thankful. Vital Signs: 10:47 BP 128 / 88; Pulse 68; Resp 16; Temp 98.4(TE); Pulse Ox 98% on R/A; Weight 77.11 kg; Height 5 ft. 8 in. (172.72 cm); Pain 10/10; 12:53 BP 136 / 93; Pulse 62; Resp 16; Pulse Ox 99% on R/A; ss 10:47 Body Mass Index 25.85 (77.11 kg, 172.72 cm) Rillito Coma Score: 09:05 Eye Response: spontaneous(4). Verbal Response: oriented(5). Motor Response: obeys cp commands(6). Total: 15. ED Course: 08:27 Patient arrived in ED. rg4 08:35 Triage completed. iw 08:38 Brayan Yang MD is Attending Physician. rn 08:40 Pernell Ireland PA is PHCP. rn 09:16 XRAY Chest (1 view) In Process Unspecified. EDMS 09:16 XRAY Pelvis In Process Unspecified. EDMS 10:12 Arm band placed on right wrist. ss 10:14 Inserted saline lock: 22 gauge in left antecubital area, using aseptic technique. Blood ss collected. Patient maintains SpO2 saturation greater than 95% on room air. 10:26 CT Traumagram (Head C Spine CAP W Con) In Process Unspecified. EDMS 10:26 CT Facial Bones W/O Con In Process Unspecified. EDMS 10:47 Patient has correct armband on for positive identification. Bed in low position. Call ss light in reach. 12:29 Bernice Cunha, BRANDO is Primary Nurse. ss 12:52 No provider procedures requiring assistance completed. Patient transferred, IV remains ss in place. 13:19 initiated transfer to [facility], pt accepted in transfer by Dr Cody, admin approval bd given by Kelly Vasquez RN. Administered Medications: 11:07 Drug: fentaNYL (PF) 25 mcg Route: IVP; Site: left antecubital; ss 12:25 Drug: fentaNYL (PF) 25 mcg Route: IVP; Site: left antecubital; ss 12:28 Drug: NS 0.9% 1000 ml Route: IV; Rate: 1000 ml; Site: left antecubital; ss 12:28 Drug: Ancef (cefazolin) 1 grams Route: IVPB; Site: left antecubital; ss 13:28 Follow up: IV Status: Completed infusion; IV Intake: 100ml ss Medication: 10:47 VIS not applicable for this client. ss Intake: 13:28 IV: 100ml; Total: 100ml. ss Outcome: 11:56 ER care complete, transfer ordered by . cp 12:52 Condition: good ss 12:52 Instructed on the need for transfer. 13:36 Transferred by ground EMS to [facility], Transfer form completed. X-rays sent ss w/ patient. 13:37 Patient left the ED. ss 13:40 Patient left the ED. ss 14:05 Patient left the ED. iw Signatures: Dispatcher [employer] EDMS Aav Sun bd Reji Eleanor, RN RN Brayan Loyola MD MD rn Bernice Cunha RN RN Pernell Montes PA PA cp Garcia, Rubi 4
[2022-05-26] MEDS ORDERED: CEFAZOLIN SODIUM 1 GM/VIAL ONE (12:18)
[2022-05-26] MEDS ORDERED: NA CHLORIDE 0.9% 1,000 ML ONE (12:18)
[2022-05-26] MEDS ORDERED: NA CHLORIDE 0.9% 100 ML IV ONE (12:19)
[2022-05-26 13:51] VITALS: TEMP 98.4
[2022-05-26 13:56] VITALS: BP 136/93; O2SAT 99
--- NOTE | 2022-05-27 08:24 | EKG ---
Test Date: 2022-05-26 Test Time: 10:42:54 Diesel Service Technician: MARGARITA MEASUREMENT RESULTS: Intervals: Rate: 64 OH: 138 QRSD: 78 QT: 394 QTc: 406 Wrens: P: 60 OH: 138 QRS: 57 T: 42 INTERPRETIVE STATEMENTS: Normal sinus rhythm Normal ECG No previous ECG available for comparison Electronically Signed On 05-27-22 08:20:06 ETHICS INSTRUCTOR by Nikolas Castillo
== END 2022-05-26 14:05 | disposition short-term general hospital (02) ==
LOC: ER 08:24
DX: S22.32XA Fracture of one rib, left side, initial encounter for closed fracture (principal); S02.40EA Zygomatic fracture, right side, initial encounter for closed fracture; S02.31XA Fracture of orbital floor, right side, initial encounter for closed fracture; S02.40CA Maxillary fracture, right side, initial encounter for closed fracture
CPT/HCPCS: 36415; 70450; 70486; 71045; 71260; 72125; 72170; 74177; 76377; 80048; 82565; 84484; 85025; 85610; 85730; 93005; 96365; 96375; 99285; J0690; J3010; J7030; Q9967